=== PATIENT | female | born 2000 | race Caucasian/White ===

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

== ENCOUNTER 2019-06-07 23:56 | Emergency (ER) | payer BC, OTHER ==
--- NOTE | 2019-06-08 00:47 | ED ---
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 The patient rates the pain 0/10 in severity as she feels better in the ED. Symptoms aggravated by exertion. Symptoms alleviated by nothing. The patient denies any cough or fever. She has a history of asthma and anxiety attacks. She states that she used a steroid inhaler earlier in the day as part of her daily routine, but she did not use her Albuterol rescue inhaler because she thought it would give her more palpitations. She denies any recent travel. Medication list reviewed. Allergy list reviewed. - History of Current Complaint Chief Complaint: EDDysrhythmPalp Stated Complaint: SOB/RAPID HR PER PT Time Seen by Provider: 06/08/19 00:32 Hx Obtained From: Patient Hx Last Menstrual Period: iud Onset/Duration: Started Hours Ago Timing: Constant Initial Severity: Mild Current Severity: None Pain Intensity: 0 Pain Scale Used: 0-10 Numeric Chest Pain Radiates: No Character: Tightness Aggravating Factor(s): Exertion Alleviating Factor(s): Nothing Associated Signs and Symptoms: Positive: Shortness of Breath, Other: - Tightness in ribcage. - Allergy/Home Medications Allergies/Adverse Reactions: Allergies Allergy/AdvReac Type Severity Reaction Status Date / Time amoxicillin [From Augmentin] AdvReac Mild Nausea Verified 06/15/18 21:59 clavulanic acid AdvReac Mild Nausea Verified 06/15/18 21:59 [From Augmentin] Home Medications: Home Medications Acetaminophen [Tylenol Extra Strength] 1,000 mg PO ONCE PRN 05/01/18 [History Confirmed 06/08/19] Ibuprofen TAB* [Motrin TAB* 600 MG] 600 mg PO Q6H PRN #30 tab 05/01/18 [Rx Confirmed 06/08/19] Iud* 1 05/01/18 [History] Albuterol HFA INHALER* [Ventolin HFA Inhaler*] 1 - 2 puff INH Q4H PRN 06/08/19 [ History Confirmed 06/08/19] Beclomethasone Dipropionate [Qvar Redihaler] 2 puff PO BID 06/08/19 [History Confirmed 06/08/19] Cetirizine* [ZyrTEC 10 MG TAB*] 5 mg PO DAILY 06/08/19 [History Confirmed ] PMH/Surg Hx/FS Hx/Imm Hx Respiratory History: Reports: Hx Asthma - ALLERGY-INDUCED Sensory History: Denies: Hx Legally Blind, Hx Deafness Opthamlomology History: Denies: Hx Legally Blind - Surgical History Surgical History: None Infectious Disease History: No Infectious Disease History: Denies: Traveled Outside the [place] in Last 30 Days - Family History Known Family History: Negative: Cardiac Disease, Diabetes - Social History Alcohol Use: None Hx Substance Use: No Substance Use Type: Reports: None Hx Tobacco Use: No Smoking Status (MU): Never Smoked Tobacco - Additional Comments History Additional Comments: Asthma, anxiety attacks. Review of Systems - ROS Summary Review of Systems Summary: Home Medications Medication Instructions Recorded Confirmed Type Acetaminophen [Tylenol Extra 1,000 mg PO ONCE PRN 05/01/18 06/08/19 History Strength] Ibuprofen TAB* [Motrin TAB* 600 MG] 600 mg PO Q6H PRN #30 tab 05/01/18 06/08/19 Rx Iud* 1 05/01/18 History Albuterol HFA INHALER* [Ventolin 1 - 2 puff INH Q4H PRN 06/08/19 06/08/19 History HFA Inhaler*] Beclomethasone Dipropionate [Qvar 2 puff PO BID 06/08/19 06/08/19 History Redihaler] Cetirizine* [ZyrTEC 10 MG TAB*] 5 mg PO DAILY 06/08/19 06/08/19 History Negative: Fever Positive: Palpitations, Other - Tightness in ribcage Positive: Shortness Of Breath. Negative: Cough All Other Systems Reviewed And Are Negative: Yes Physical Exam - Summary Physical Exam Summary: General: Well-developed, Well-nourished female. Mildly anxious appearing. HEENT: Normocephalic, Atraumatic. Eyes: Conjuctiva normal, PERRL. Oropharynx: Clear, mucous membranes moist, (-) exudates. Neck: Soft, FROM, (-) lymphadenopathy, (-) thyromegaly, (-) JVD. Cardiovascular: Normal sinus rhythm, (-) murmur. Lungs: Clear to auscultation bilaterally (-) wheezes, (-) rales, (-) rhonchi. Abdomen: Soft, non-tender, non-distended, (-) organomegaly, normal bowel sounds. Back: (-) CVA tenderness Extremities: No edema. Skin: Warm, dry, (-) rash. Neuro: Alert and oriented x3, moves all extremities equally. No ataxia. No gait disturbance. No sensory deficit. Normal strength, normal sensation. Psychiatric: Mood normal, affect normal. Triage Information Reviewed: Yes Vital Signs On Initial Exam: Initial Vitals Temp Pulse Resp BP Pulse Ox 98.1 F 77 18 116/70 98 06/07/19 23:58 06/07/19 23:58 06/07/19 23:58 06/07/19 23:58 06/07/19 23:58 Vital Signs Reviewed: Yes Procedures - Sedation Patient Received Moderate/Deep Sedation with Procedure: No Diagnostics - Vital Signs Vital Signs Temp Pulse Resp BP Pulse Ox 06/07/19 23:58 98.1 F 77 18 116/70 98 - Laboratory Lab Statement: Any lab studies that have been ordered have been reviewed, and results considered in the medical decision making process. - Radiology Chest x-ray Radiology Interpretation Completed By: ED Physician Summary of Radiographic Findings: No infiltrate. No pleural effusion. ED physician has reviewed and interpreted this report. - EKG 0443 Cardiac Rate: NL - 68 BPM EKG Rhythm: Sinus Rhythm Summary of EKG Findings: EKG at 04:43 reveals normal sinus rhythm with rate of 68 BPM, no acute changes, no ischemic changes. This EKG was reviewed and interpreted by Dr. Gutierrez. Re-Evaluation - Re-Evaluation First Eval Re-Evaluation Time: 02:00 Change: Improved Comment: I have discussed results with the patient and palpitations are resolved. Discussed symptoms that warrant immediate return to ED. Disposition - Course Course Of Treatment: 19-year-old female presents from home with palpitations. Patient states she started feeling her heart racing earlier. Has had tightness across her lower ribs. He feels somewhat short of breath worse with climbing stairs. She states it didn't feel like anxiety which she has had in the past. Didn't feel like her usual asthma. She did not try her albuterol inhaler as her heart was racing and she didn't want to make it worse. No fevers or chills. No cough. No recent travel. No control pills. Patient has IUD. No lower extremity pain or edema. On physical exam patient is mildly anxious appearing. Otherwise within normal limits. Patient states she is starting to feel somewhat better upon arrival. Refuses blood work. She does consent to a chest x-ray which is normal appearing. patient used her albuterol inhaler and was observed. Started feeling even better. Declined further workup. Requested discharge to home. Will follow up with PCP. Return sooner for any worsening symptoms. - Diagnoses Provider Diagnoses: Palpitations Discharge ED - Sign-Out/Discharge Documenting (check all that apply): Patient Departure - discharge - Discharge Plan Condition: Stable Disposition: HOME Patient Education Materials: Heart Palpitations (ED) Referrals: [facility] [Outside] - 3 Days Additional Instructions: Please follow up with your primary care physician within three days. Please return to ED for any new or worsening symptoms. - Billing Disposition and Condition Condition: STABLE Disposition: Home - Attestation Statements Document Initiated by Jefferyibe: Yes Documenting Scribe: Fabienne Anderson Provider For Whom Adithya is Documenting (Include Credential): Yesi Gutierrez MD Scribe Attestation: IPamela Natalie George, scribed for Yesi Gutierrez MD on 06/08/19 at 0449. Scribe Documentation Reviewed: Yes Provider Attestation: The documentation as recorded by the Pamela castro Natalie George accurately reflects the service I personally performed and the decisions made by , Yesi Gutierrez MD Status of Scribe Document: Viewed
[2019-06-08 02:02] VITALS: BP 87/61
== END 2019-06-08 02:01 | disposition home or self-care (01) ==
LOC: ED 23:56
DX: R00.2 Palpitations (principal); R06.02 Shortness of breath; R07.89 Other chest pain; J45.909 Unspecified asthma, uncomplicated; Z79.51 Long term (current) use of inhaled steroids; Z97.5 Presence of (intrauterine) contraceptive device; Z88.1 Allergy status to other antibiotic agents; Z88.0 Allergy status to penicillin
CPT/HCPCS: 71045; 93005; 99282